=== PATIENT | female | born 1955 | race Caucasian/White ===

== ENCOUNTER → 2019-07-25 | Outpatient (CLI) | payer OTHER ==
[~2019-07-25] MED LIST: None at this time
[2019-07-25 11:06] LABS: BASOPHILS # (AUTO) 0.04 x10^3/uL (0-0.1); BASOPHILS % (AUTO) 0 % (0-1); EOSINOPHILS # (AUTO) 0.24 x10^3/uL (0-0.4); EOSINOPHILS % (AUTO) 3 % (1-7); LYMPHOCYTES # (AUTO) 2.12 x10^3/uL (1-3.4); LYMPHOCYTES % (AUTO) 25 % (22-44); MD NO; MEAN CORPUSCULAR HEMOGLOBIN 30.8 pg (27.0-34.8); MEAN CORPUSCULAR HGB CONC 33.5 g/dL (32.4-35.8); MEAN CORPUSCULAR VOLUME 91.9 fL (80-100); MEAN PLATELET VOLUME 6.3 fL (7.4-10.4); MONOCYTES # (AUTO) 0.62 x10^3/uL (0.2-0.8); MONOCYTES % (AUTO) 7 % (2-9); NEUTROPHILS # (AUTO) 5.48 x10^3/uL (1.8-6.8); NEUTROPHILS % (AUTO) 65 % (42-75); PLATELET COUNT 436 x10^3/uL (130-400); RED BLOOD COUNT 4.74 x10^6/uL (3.82-5.3); RED CELL DISTRIBUTION WIDTH 13.5 % (9.6-15.2)
[2019-07-25 11:12] LABS: INTERNATIONAL NORMALIZED RATIO 0.95 (0.93-1.1)
[2019-07-25 11:15] LABS: ALANINE AMINOTRANSFERASE 36 U/L (12-78); ALBUMIN 3.7 g/dL (3.4-5.0); ANION GAP 8 mmol/L (5-15); CALCIUM 8.7 mg/dL (8.5-10.1); CHLORIDE 104 mmol/L (98-107); CREATININE 0.68 mg/dL (0.55-1.02)
[2019-07-25 11:18] LABS: ALKALINE PHOSPHATASE 129 U/L (45-117); BILIRUBIN,TOTAL 0.3 mg/dL (0.2-1.0); TOTAL PROTEIN 7.4 g/dL (6.4-8.2)
== END | disposition home or self-care (01) ==
LOC: STAR 09:58
PROVIDERS: ATTEND Surgery
DX: Z01.818 Encounter for other preprocedural examination (principal)
CPT/HCPCS: 36415; 80053; 85025; 85610; 93005

== ENCOUNTER 2019-08-01 07:03 | Day surgery (SDC) | payer OTHER ==
[~2019-08-01] VITALS: Ht 162.6 cm; Wt 67.5 kg
[2019-08-01] MEDS ORDERED: BUPIVACAINE/PF 0.5% ONE (07:25)
[2019-08-01] MEDS ORDERED: EPINEPHRINE 1 MG/ML, 1ML ONE (07:26)
[2019-08-01] MEDS ORDERED: ISOSULFAN BLUE 10 MG/ML, 5ML IV ONE (07:26)
[2019-08-01 07:35] VITALS: BP 101/69
[2019-08-01] MEDS ORDERED: LACTATED RINGERS 1,000 ML IV SCH (07:37)
[2019-08-01] MEDS ORDERED: SCOPOLAMINE PATCH, 1.5MG PATCH.TD72 TD ONE (09:28)
[2019-08-01] MEDS ORDERED: ACETAMINOPHEN 500 MG TABLET ONE (09:28)
[2019-08-01] MEDS ORDERED: MIDAZOLAM 1 MG/ML, 2ML ONE (09:34)
[2019-08-01] MEDS ORDERED: FENTANYL PF 100 MCG/2ML ONE ×2 (09:35→11:17)
[2019-08-01] MEDS ORDERED: PROPOFOL 100 ML ONE (09:40)
[2019-08-01] MEDS ORDERED: FENTANYL PF 250 MCG/5ML ONE (10:26)
[2019-08-01] MEDS ORDERED: DIAZEPAM 5 MG/ML, 2ML IVPush PRN (10:30)
[2019-08-01] MEDS ORDERED: hydrALAzine 20 MG/ML, 1ML IV PRN (10:30)
[2019-08-01] MEDS ORDERED: LABETALOL 5MG/ML, 20ML IV PRN (10:30)
[2019-08-01] MEDS ORDERED: MEPERIDINE/PF 25MG/0.5ML IVPush PRN (10:30)
[2019-08-01] MEDS ORDERED: HYDROmorphone 2 MG/ML, 1ML IVPush PRN (10:30)
[2019-08-01] MEDS ORDERED: PROMETHAZINE 25 MG/ML, 1ML IV PRN (10:30)
[2019-08-01] MEDS ORDERED: ALBUTEROL SULFATE 2.5 MG/3 ML NPPB PRN (10:30)
[2019-08-01] MEDS ORDERED: ACETAMINOPHEN 325 MG TABLET PO PRN (10:30)
[2019-08-01] MEDS ORDERED: ONDANSETRON 2MG/ML, 2ML ONE (11:09)
[2019-08-01] MEDS ORDERED: DEXAMETHASONE 4 MG/ML, 1ML ONE (11:09)
[2019-08-01] MEDS ORDERED: PROPOFOL 10 MG/ML, 20ML ONE (11:09)
[2019-08-01] MEDS ORDERED: CEFAZOLIN 1,000 MG ONE (11:09)
[2019-08-01] MEDS ORDERED: OXYcodone 5 MG/5 ML ORAL.SOL UDC ONE (11:18)
[2019-08-01] MEDS: FENTANYL PF 100 MCG/2ML IV PRN ×2 (11:21→11:47)
[2019-08-01] MEDS: OXYcodone 5 MG/5 ML ORAL.SOL UDC PO PRN ×2 (11:27→11:45)
== END 2019-08-01 13:45 | disposition home or self-care (01) ==
LOC: OUT 07:03
PROVIDERS: ATTEND Surgery
DX: D05.11 Intraductal carcinoma in situ of right breast (principal); F41.9 Anxiety disorder, unspecified; K58.9 Irritable bowel syndrome, unspecified; F17.210 Nicotine dependence, cigarettes, uncomplicated
CPT/HCPCS: 19303; 88307; J0171; J0690; J1100; J2250; J2405; J2704; J3010; J7120; 88360